=== PATIENT | female | born 1995 | race Caucasian/White ===

== ENCOUNTER 2016-06-19 13:28 | Outpatient (CLI) | payer MEDICAID ==
[~2016-06-19] VITALS: Ht 160 cm; Wt 80.7 kg
[2016-06-19 13:50] VITALS: BP 114/79
[2016-06-19] MEDS ORDERED: PRENATAL PLUS1 TA1 PO (13:54)
[2016-06-19 14:10] LABS: URINE BLOOD NEGATIVE (NEG)
[2016-06-19 14:16] LABS: URINE BILIRUBIN - DIPSTICK NEGATIVE (NEG)
== END 2016-06-19 14:40 | disposition home or self-care (01) ==
LOC: OBOUT 13:28 → OB 13:30 → OBOUT 14:40
PROVIDERS: Obstetrics & Gynecology
DX: O60.03 Preterm labor without delivery, third trimester (principal); Z3A.38 38 weeks gestation of pregnancy